=== PATIENT | male | born 1970 | race Caucasian/White ===

== ENCOUNTER 2017-01-25 06:40 | Emergency (ER) | payer OTHER ==
--- NOTE | 2017-01-25 07:01 | PDOC ---
History of Present Illness - General Stated Complaint: TOOTH PAIN Time Seen by Provider: 01/25/17 06:58 History Source: Patient - History of Present Illness Initial Comments: 01/25/17 07:15 CC: 1 day h/o tooth pain Patient is a 46 y.o. male with no significant PMH who presents today c/o 1 day h /o of jaw pain associated with his impacted 18th (bicuspid) tooth. Patient notes that he started feeling a throbbing pain in his jaw yesterday (01/24) morning. Patient notes the pain is constant and he appreciates some associated facial swelling. Patient took a Percocet leftover from a recent shoulder surgery with 2-3 hours relief. Patient denies any systemic signs of infection including fevers, chills, nausea, vomiting. Patient is scheduled to have the tooth removed on Friday. Surgical: R rotator cuff repair NKDA Social: denies cigarettes, 1 beer daily, daily marijuana use 01/25/17 08:25 Past History - Past Medical History Allergies/Adverse Reactions: Allergies Allergy/AdvReac Type Severity Reaction Status Date / Time No Known Allergies Allergy Verified 01/25/17 07:04 Home Medications: Ambulatory Orders Amoxicillin - [Amoxicillin 500mg Capsule -] 500 mg PO BID #14 capsule 01/25/17 Naproxen [Naprosyn -] 500 mg PO BID #4 tablet 01/25/17 Oxycodone HCl/Acetaminophen [Percocet 10-325 mg Tablet] 1 each PO TID PRN #6 tablet MDD 3 tablets 01/25/17 Review of Systems - Review of Systems Constitutional: No: Chills, Fever HEENTM: Yes: Dental Problems Respiratory: No: Shortness of Breath Cardiac (ROS): No: Chest Pain All Other Systems: Reviewed and Negative *Physical Exam - Physical Exam General Appearance: Yes: Nourished, Appropriately Dressed HEENT: positive: Other (impacted tooth 18, no appreciable erythema of jaw, no facial swelling, no lingual/buccal abscess) Medical Decision Making - Medical Decision Making 01/25/17 01/25/17 07:22 Patient is a 46 y.o. male who presents with a day h/o jaw pain associated with a impacted bicuspid. PE shows an impacted tooth #18 with no appreciable erythema or swelling and no oral abscess or lymphadenopathy. PLAN: 1. Amoxicillin 2. Pain control with Toradol in ED and discharged with 6 Percocet tab for pain relief until his surgery on Friday. *DC/Admit/Observation/Transfer Diagnosis at time of Disposition: Toothache - Discharge Dispostion Disposition: HOME Condition at time of disposition: Fair Admit: No - Prescriptions Prescriptions: Amoxicillin - [Amoxicillin 500mg Capsule -] 500 mg PO BID #14 capsule Naproxen [Naprosyn -] 500 mg PO BID #4 tablet Oxycodone HCl/Acetaminophen [Percocet 10-325 mg Tablet] 1 each PO TID PRN #6 tablet MDD 3 tablets PRN Reason: For Toothache - Referrals Referrals: Jey Hernandez [Primary Care Provider] - - Patient Instructions Printed Discharge Instructions: DI for Dental Pain, DI for Impacted Tooth Additional Instructions: Please take naproxen twice a day for your pain. If your pain is not well controlled, you may take a Percocet as needed for pain control. Please start Amoxicillin should you experience any fevers or chills. Return to the Emergency Department should you experience any new, worsening, or concerning symptoms.
[2017-01-25 07:04] VITALS: BP 152/92; PULSE 60; TEMP 97.9; BMI 24.6
--- NOTE | 2017-01-25 08:16 | PDOC ---
Attending Attestation - Resident Resident Name: Crys Arroyo - ED Attending Attestation I have performed the following: I have examined & evaluated the patient, The case was reviewed & discussed with the resident, I agree w/resident's findings & plan, Exceptions are as noted - HPI HPI: 01/25/17 07:57 46yo M with no sig PMH p/w acute on chronic impacted 2nd molar pain. Scheduled for removal of tooth on Friday. Reports he has been taking ibuprofen 800mg with no relief. Took a percocet he had from a recent shoulder surgery which helped for 3 hours and then pain recurred. Feels some swelling outside on his jaw. Denies fevers, chills. Denies recent CP, SOB, abd pain, N/V/D, LE edema, rashes, headache, dizziness, focal weakness or numbness. - Physicial Exam PE: 01/25/17 08:16 GENERAL: Awake, alert, and fully oriented, in no acute distress HEAD: No signs of trauma EYES: PERRLA, EOMI, sclera anicteric, conjunctiva clear ENT: Auricles normal inspection, hearing grossly normal, nares patent, oropharynx clear without exudates. Moist mucosa. tooth 18 impacted with ttp over the impaction, no erythema, fluctuance warmth or induration. No sign of collection. No edema of buccal mucosa/cheek. No LAD in mandibular region. NECK: Normal ROM, supple, no lymphadenopathy, JVD, or masses LUNGS: Breath sounds equal, clear to auscultation bilaterally. No wheezes, and no crackles HEART: Regular rate and rhythm, normal S1 and S2, no murmurs, rubs or gallops ABDOMEN: Soft, nontender, normoactive bowel sounds. No guarding, no rebound. No masses EXTREMITIES: Normal range of motion, no edema. No clubbing or cyanosis. No cords, erythema, or tenderness NEUROLOGICAL: Normal speech, cranial nerves intact, negative pronator drift, 5/ 5 strength in all 4 extremities, normal sensation to light touch in all 4 extremities, normal cerebellar exam, normal gait, normal reflexes and tone SKIN: Warm, Dry, normal turgor, no rashes or lesions noted. - Medical Decision Making 01/25/17 08:23 46-year-old male presents with acute on chronic pain due to impaction of tooth # 18. Patient is due for removal of the tooth on Friday. No signs of infection on exam here, vitals are stable. Patient will be provided with pain medication to bridge him until his procedure on Friday. Patient will also be given a prescription for amoxicillin should he develop fever or chills. I discussed the physical exam findings, ancillary test results and final diagnoses with the patient. I answered all of the patient's questions. The patient was satisfied with the care received and felt comfortable with the discharge plan and treatment plan. The patient will call their primary care physician within 24 hours to arrange follow-up and will return to the Emergency Department with any new, persistent or worsening symptoms.
[2017-01-25] MEDS ORDERED: KETOROLAC TROMETHAMINE 15 MG/ML VIAL IM ONE (08:30)
[2017-01-25] MEDS ORDERED: KETOROLAC TROMETHAMINE 30 MG/1 ML VIAL IM ONE (08:34)
[2017-01-25] MEDS ORDERED: KETOROLAC TROMETHAMINE 30 MG/1 ML VIAL ONE (08:35)
== END 2017-01-25 09:49 | disposition home or self-care (01) ==
LOC: JER 06:40
PROC: 3E0233Z Introduction of Anti-inflammatory into Muscle, Percutaneous Approach (ICD-10-PCS; principal; 2017-01-25)
DX: K08.89 Other specified disorders of teeth and supporting structures (principal)
CPT/HCPCS: 99281-25

== ENCOUNTER 2020-08-11 17:41 | Emergency (ER) | payer OTHER ==
[2020-08-11 18:28] VITALS: BP 129/87; PULSE 63; TEMP 97.8; BMI 25.4
[2020-08-11] MEDS ORDERED: KETOROLAC TROMETHAMINE 30 MG/1 ML VIAL IVPUSH ONE (18:41)
[2020-08-11] MEDS ORDERED: SODIUM CHLORIDE 0.9% 500 ML INFUS.BAG IV ONE (18:41)
[2020-08-11] MEDS ORDERED: KETOROLAC TROMETHAMINE 30 MG/1 ML VIAL ONE (18:54)
[2020-08-11 19:08] LABS: BASO % 0.7 % (0-2.0); EOS % 1.1 % (0-4.5); HEMATOCRIT 41.8 % (35.4-49); HEMOGLOBIN 13.5 GM/dL (11.7-16.9); LYMPH % 31.4 % (8-40); MCH 27.5 pg (25.7-33.7); MCHC 32.4 g/dl (32.0-35.9); MEAN CELL VOLUME 84.9 fl (80-96); MONO % 11.3 % (3.8-10.2); NEUT % 55.5 % (42.8-82.8); PH,URINE 5.5 (5.0-8.0); PLATELET COUNT 188 K/MM3 (134-434); RBC 4.92 M/mm3 (4.00-5.60); RDW 13.4 % (11.9-15.9); URINE APPEARANCE CLEAR; URINE BILIRUBIN NEGATIVE (NEGATIVE); URINE COLOR YELLOW; URINE GLUCOSE (UA) NEGATIVE (NEGATIVE); URINE KETONE NEGATIVE (NEGATIVE); URINE LEUK ESTERASE NEGATIVE (NEGATIVE); URINE NITRITE NEGATIVE (NEGATIVE); URINE PROTEIN NEGATIVE (NEGATIVE); URINE UROBILINOGEN 0.2 mg/dL (0.2-1.0); WHITE BLOOD COUNT 6.9 K/mm3 (4.0-10.0)
[2020-08-11 19:28] LABS: BLOOD UREA NITROGEN 9.5 mg/dL (7-18); CALCIUM 9.3 mg/dL (8.5-10.1)
[2020-08-11 19:29] LABS: ALBUMIN 4.1 g/dl (3.4-5.0)
[2020-08-11 19:32] LABS: CREATININE 1.1 mg/dL (0.55-1.3)
[2020-08-11 19:33] LABS: BILIRUBIN,TOTAL 0.7 mg/dL (0.2-1); TOT PROT 7.3 g/dl (6.4-8.2)
== END 2020-08-11 20:42 | disposition home or self-care (01) ==
LOC: JER 17:41 → JERFT 17:41
PROC: 3E0333Z Introduction of Anti-inflammatory into Peripheral Vein, Percutaneous Approach (ICD-10-PCS; principal; 2020-08-11)
DX: R10.31 Right lower quadrant pain (principal)
CPT/HCPCS: 36415; 74176-TC; 80053; 81003; 85025; 87086; 99284-25